=== PATIENT | male | born 1965 | race Caucasian/White ===

== ENCOUNTER 2019-01-10 10:17 | Day surgery (SDC) | payer BC ==
[2019-01-05 09:26] VITALS: BMI 30.1
[2019-01-10] MEDS ORDERED: MIDAZOLAM HCL 2 MG/2 ML SINGLE DOSE VIAL ONE (13:49)
[2019-01-10] MEDS ORDERED: fentaNYL CITRATE 250 MCG/5 ML VIAL ONE (14:08)
--- NOTE | 2019-01-10 14:37 | OP ---
Operative Note - Note: Operative Date: 01/10/19 Pre-Operative Diagnosis: Right renal stone Operation: Right ESWL Findings: 6 mm lower pole Left renal stone Post-Operative Diagnosis: Same as Pre-op Surgeon: Tim Quezada Anesthesia: Fractional Estimated Blood Loss (mls): 0 Drains, Volume Out (mls): 0 Operative Report Dictated: Yes
[2019-01-10 15:11] VITALS: TEMP 98.2
--- NOTE | 2019-01-10 15:22 | OP ---
Operative Note - Note: Operative Date: 01/10/19
--- NOTE | 2019-01-10 15:35 | OP ---
Operative Note - Note: Operative Date: 01/10/19 Pre-Operative Diagnosis: Right renal stone
[2019-01-10 16:09] VITALS: BP 111/72; PULSE 76
--- NOTE | 2019-01-10 17:42 | OP ---
DATE OF OPERATION: 01/10/2019 PREOPERATIVE DIAGNOSIS: Right renal stone. POSTOPERATIVE DIAGNOSIS: Right renal stone. PROCEDURE: Right extracorporeal shock-wave lithotripsy. ATTENDING: Js Abdullahi MD ANESTHESIA: Fractional. DESCRIPTION OF PROCEDURE: Patient was brought in the operating room and placed in supine position on the operating room table. Ultrasonography and fluoroscopy were performed. A right 6-mm lower pole stone was identified. At this point, anesthesia and preoperative antibiotics were administered. Patient then underwent extracorporeal shock-wave lithotripsy. Excellent fragmentation of the stone was noted under real time ultrasonography and fluoroscopy. No complications were noted. The patient tolerated the procedure very well. JS ABDULLAHI M.D. /[id number]
== END 2019-01-10 15:45 | disposition home or self-care (01) ==
LOC: JASU-SURG 10:17
PROVIDERS: ATTEND Urology
PROC: 0TF3XZZ Fragmentation in Right Kidney Pelvis, External Approach (ICD-10-PCS; principal; 2019-01-10 13:15)
DX: N20.0 Calculus of kidney (principal)

== ENCOUNTER 2020-04-22 10:51 | Emergency (ER) | payer BC, OTHER ==
[2020-04-22 10:57] VITALS: BP 132/79; PULSE 105; TEMP 98; BMI 30.5
[2020-04-22] MEDS ORDERED: KETOROLAC TROMETHAMINE 60 MG/2 ML VIAL ONE (11:56)
[2020-04-22] MEDS ORDERED: KETOROLAC TROMETHAMINE 60 MG/2 ML VIAL IM ONE (11:57)
== END 2020-04-22 12:27 | disposition home or self-care (01) ==
LOC: JER 10:51
PROC: 0H98XZZ Drainage of Buttock Skin, External Approach (ICD-10-PCS; principal; 2020-04-22)
PROC: 3E0233Z Introduction of Anti-inflammatory into Muscle, Percutaneous Approach (ICD-10-PCS; 2020-04-22)
DX: L02.31 Cutaneous abscess of buttock (principal)
CPT/HCPCS: 87070; 87186; 87205; 99285-25

== ENCOUNTER 2020-11-26 04:30 | Day surgery (SDC) | payer OTHER ==
[2020-11-22 18:08] VITALS: BMI 30.9
[2020-11-26] MEDS ORDERED: MIDAZOLAM HCL 2 MG/2 ML SINGLE DOSE VIAL ONE ×2 (11:21)
[2020-11-26 12:12] VITALS: TEMP 97.7
[2020-11-26 12:36] VITALS: BP 129/79; PULSE 73
== END 2020-11-26 12:40 | disposition home or self-care (01) ==
LOC: JASU-SURG 04:30
PROVIDERS: ATTEND Urology
PROC: 0TF3XZZ Fragmentation in Right Kidney Pelvis, External Approach (ICD-10-PCS; principal; 2020-11-26 11:00)
DX: N20.0 Calculus of kidney (principal)